=== PATIENT | male | born 1960 | race Caucasian/White ===

== ENCOUNTER 2017-03-23 13:39 | Inpatient (IN) ==
[2017-03-23 14:59] LABS: Basophils % 0.3 %; Eosinophils # 0.2 K/mcL (0.0-0.6); Eosinophils % 1.4 %; Hematocrit 43.4 % (37.5-50.1); Hemoglobin 14.4 g/dL (12.9-16.9); Immature Granulocytes % 0.3 % (0-4); Immature Platelets 5.5 % (1.1-6.1); Lymphocytes # 2.2 K/mcL (0.6-4.6); Lymphocytes % 18.4 %; Mean Corpuscular HGB Conc 33.2 g/dL (31.6-35.5); Mean Corpuscular Hemoglobin 29.4 pg (28.0-33.3); Mean Corpuscular Volume 88.8 fL (83.0-100.0); Mean Platelet Volume 10.3 fL (9.4-12.4); Monocytes # 0.8 K/mcL (0.0-1.3); Neutrophils # 8.7 K/mcL (1.6-8.9); Platelet Count 180 K/mcL (140-400); Red Blood Count 4.89 M/mcL (4.19-5.50); Red Cell Distribution Width 13.4 % (11.5-14.5); Segmented Neutrophils % 72.6 %
[2017-03-23 15:05] LABS: INR 1.2
[2017-03-23] MEDS ORDERED: *HR* HYDROmorphone (PF) 1 MG/ML SYRINGE IVP ONE ×3 (15:06→18:09)
[2017-03-23] MEDS ORDERED: 0.9 % Sodium Chloride 1,000 ML IVC ONE (15:06)
--- NOTE | 2017-03-23 15:11 | Emergency Department Note ---
Disposition Clinical Impression: Edema of right lower extremity Dvt femoral (deep venous thrombosis) Qualifiers: Chronicity: acute Laterality: right Qualified Code(s): I82.411 - Acute embolism and thrombosis of right femoral vein Disposition: Admitted As Inpatient Condition: Good Referrals: NO,PCP [Non-Partnered Physician] - Forms: ED Satisfaction Letter General Adult HPI - General Chief complaint: ED Chest Pain Stated complaint: JL, chest pain Time Seen by Provider: 03/23/17 14:48 Source: patient Limitations: no limitations Nursing Notes Reviewed: Yes Vital Signs Reviewed: Yes - History of Present Illness HPI Narrative: 57-year-old male who reports that 1 month ago he was admitted due to DVT and right lower extremity cellulitis. He has a long history of DVT and PE. His most recent DVT was one month ago on his admission. He has been on numerous anticoagulants including Lovenox, Arixtra, Coumadin, Jeff was and is currently on Pradaxa. He has only been on Pradaxa now for one month. He did previously have an IVC filter that was removed in 2014. He is followed by Dr. Rosa who has diagnosed him as heterozygous factor V Leiden. He admits to progressively worsening right lower extremity edema and pain. In addition he is having dyspnea with exertion and intermittent right-sided chest discomfort. Radiation: non-radiation Pain Severity: severe Pain Scale: 10 Improves with: nothing Worsens with: movement Associated symptoms: Reports: denies other symptoms Treatments Prior to Arrival: none - Related Data Home Medications Medication Instructions Recorded Confirmed Omeprazole [PriLOSEC] 20 mg PO DAILY 04/03/15 03/19/17 Oxycodone HCl/Acetaminophen 1 tab PO Q4-6H PRN 04/03/15 03/19/17 [Percocet 5-325 mg Tablet] Sildenafil Citrate [Viagra] 100 mg PO PRN PRN 04/03/15 03/19/17 BuPROPion SR (12 HR) [Wellbutrin 150 mg PO DAILY 02/23/17 03/19/17 SR] Fluticasone Propionate [Allergy 2 spray NS DAILY 02/23/17 03/19/17 Relief] Gabapentin [Neurontin] 400 mg PO TID 02/23/17 03/19/17 Ibuprofen [Motrin] 800 mg PO DAILY PRN 02/23/17 03/19/17 Lisinopril [Zestril] 5 mg PO DAILY 02/23/17 03/19/17 Multivitamin [Multivitamins] 1 each PO DAILY 02/23/17 03/19/17 Pravastatin Sodium [Pravachol] 40 mg PO DAILY 02/23/17 03/19/17 Terazosin HCl 6 mg PO DAILY 02/23/17 03/19/17 hydroCHLOROthiazide 12.5 mg PO DAILY 02/23/17 03/19/17 [Hydrochlorothiazide] Previous Rx's Medication Instructions Recorded Dabigatran [Pradaxa] 150 mg PO BID #60 capsule 03/01/17 Furosemide [Lasix] 20 mg PO DAILY PRN #7 tablet 03/01/17 HYDROmorphone [Dilaudid] 4 mg PO Q6HR PRN #30 tablet 03/01/17 Sulfamethoxazole/Trimeth DS 1 each PO BID #20 tablet 03/01/17 [Bactrim DS] Allergies Allergy/AdvReac Type Severity Reaction Status Date / Time No Known Allergies Allergy Verified 04/04/15 10:40 All systems ED: reviewed and negative except as stated. Constitutional: Denies: fever Eyes: Denies: vision change ENT ED: Denies: throat pain Cardiovascular: Reports: chest pain Respiratory: Reports: dyspnea. Denies: cough Gastrointestinal: Denies: abdominal pain, nausea, vomiting Musculoskeletal: Denies: back pain Integumentary: Reports: rash (Right lower extremity edema and mild erythema) Neurological: Denies: headache Past Medical History - Past Medical History Medical history: Reports: DVT, GERD, hypertension, pulmonary embolus Surgical history: Reports: herniorrhaphy, LE vascular intervention, orthopedic, other Psychiatric history: Reports: depression - Social History Smoking Status: Former smoker Smokeless Tobacco Status: No Alcohol use: Reports: occasionally Drug use: Reports: none Physical Exam - General Limitations: no limitations General appearance: alert, anxious - Head Head exam: atraumatic - Eye Eye exam: Present: normal appearance, PERRL - ENT ENT exam: normal exam, normal oropharynx - Neck Neck exam: Present: normal inspection - Chest Chest inspection: Present: normal inspection - Respiratory Respiratory exam: Present: normal lung sounds bilaterally. Absent: respiratory distress - Cardiovascular Cardiovascular exam: Present: normal rhythm, tachycardia - Abdominal Exam Abdominal exam: Present: soft, Non-Tender - Extremities Exam Extremities exam: Present: other (Right lower extremity edema along with erythema to the level of the knee. It is not markedly warm to the touch with no streaks of erythema. It appears to be venous stasis as opposed to cellulitis.) - Neurological Exam Neurological exam: Present: alert, oriented X3 - Psychiatric Psychiatric exam: Present: normal affect, normal mood - Skin Skin exam: Present: warm, dry Course Course Narrative: I had concern for venous stasis of the right lower extremity as opposed to cellulitis. The presumed diagnosis of cellulitis on his last admission was unresponsive to vancomycin and Zosyn. He also did not have a fever and has not had one today or since he has been discharged from the hospital. There is also no streaks of erythema. It is also tense with a new DVT that was noted one month ago when the symptoms first started. Obviously of concern for pulmonary embolism with his tachycardia and mild hypoxia and dyspnea. We will do a CTA of the chest. Called by U/S due to + DVT in superficial femoral. Negative CTA of the chest for PE. I called and spoke with Dr. Garcia who recommended admission and on a heparin drip. He agreed to be a job service consultant. Will admit to hospitalist. Vital Signs Temperature 98.2 F 03/23/17 13:46 Pulse Rate 118 03/23/17 13:46 Respiratory Rate 16 03/23/17 13:46 Blood Pressure 124/74 03/23/17 13:46 O2 Sat by Pulse Oximetry 95 03/23/17 13:46 Temperature 98.2 F 03/23/17 13:46 Pulse Rate 88 03/23/17 17:11 Respiratory Rate 16 03/23/17 17:11 Blood Pressure 128/75 03/23/17 17:11 O2 Sat by Pulse Oximetry 93 03/23/17 17:11 Oxygen Delivery Oxygen Delivery Room Air Medical Decision Making - Medical Records Medical records reviewed: Yes I reviewed the patient's medical records. - Lab Data Lab results reviewed: Yes I reviewed the patient's lab results. Result diagrams: 03/23/17 14:52 03/23/17 14:52 Lab Results 03/23/17 03/23/17 03/23/17 Range/Units 14:52 14:52 14:52 WBC 12.0 H (4.3-11.1) K/mcL RBC 4.89 (4.19-5.50) M/mcL Hgb 14.4 (12.9-16.9) g/dL Hct 43.4 (37.5-50.1) % MCV 88.8 (83.0-100.0) fL MCH 29.4 (28.0-33.3) pg MCHC 33.2 (31.6-35.5) g/dL RDW 13.4 (11.5-14.5) % Plt Count 180 (140-400) K/mcL MPV 10.3 (9.4-12.4) fL Immature Gran % 0.3 (0-4) % Seg Neutrophils % 72.6 % Lymphocytes % 18.4 % Monocytes % 7.0 % Eosinophils % 1.4 % Basophils % 0.3 % Neutrophils # 8.7 (1.6-8.9) K/mcL Lymphocytes # 2.2 (0.6-4.6) K/mcL Monocytes # 0.8 (0.0-1.3) K/mcL Eosinophils # 0.2 (0.0-0.6) K/mcL Basophils # 0.0 (0.0-0.2) K/mcL Immature Plt Fraction 5.5 (1.1-6.1) % PT 13.0 H (9.4-12.1) Seconds INR 1.2 APTT 41.0 H (26.0-36.0) Seconds D-Dimer 1206 H (0-500) ng/mLFEU Sodium 137 (136-145) mEq/L Potassium 4.2 (3.5-4.5) mEq/L Chloride 103 (98-109) mEq/L Carbon Dioxide 27 (19-29) mEq/L BUN 15 (8-26) mg/dL Creatinine 1.21 (0.72-1.25) mg/dL Est GFR ( Amer) > 60 (> 60) Est GFR (Non-Af Amer) > 60 (> 60) BUN/Creatinine Ratio 12 (6-26) Glucose 109 H (70-99) mg/dL Calculated Osmolality 285 (280-300) Calcium 9.1 (8.6-10.8) mg/dL Troponin I (0-0.03) ng/mL 03/23/17 Range/Units 14:52 WBC (4.3-11.1) K/mcL RBC (4.19-5.50) M/mcL Hgb (12.9-16.9) g/dL Hct (37.5-50.1) % MCV (83.0-100.0) fL MCH (28.0-33.3) pg MCHC (31.6-35.5) g/dL RDW (11.5-14.5) % Plt Count (140-400) K/mcL MPV (9.4-12.4) fL Immature Gran % (0-4) % Seg Neutrophils % % Lymphocytes % % Monocytes % % Eosinophils % % Basophils % % Neutrophils # (1.6-8.9) K/mcL Lymphocytes # (0.6-4.6) K/mcL Monocytes # (0.0-1.3) K/mcL Eosinophils # (0.0-0.6) K/mcL Basophils # (0.0-0.2) K/mcL Immature Plt Fraction (1.1-6.1) % PT (9.4-12.1) Seconds INR APTT (26.0-36.0) Seconds D-Dimer (0-500) ng/mLFEU Sodium (136-145) mEq/L Potassium (3.5-4.5) mEq/L Chloride (98-109) mEq/L Carbon Dioxide (19-29) mEq/L BUN (8-26) mg/dL Creatinine (0.72-1.25) mg/dL Est GFR ( Amer) (> 60) Est GFR (Non-Af Amer) (> 60) BUN/Creatinine Ratio (6-26) Glucose (70-99) mg/dL Calculated Osmolality (280-300) Calcium (8.6-10.8) mg/dL Troponin I 0.00 (0-0.03) ng/mL - Radiology Data Radiology results reviewed: Yes I reviewed the patient's radiology results.
[2017-03-23 15:12] LABS: BUN/Creatinine Ratio 12 (6-26); Blood Urea Nitrogen 15 mg/dL (8-26); Calcium 9.1 mg/dL (8.6-10.8); Carbon Dioxide 27 mEq/L (19-29); Chloride 103 mEq/L (98-109); Glucose 109 mg/dL (70-99); Osmolality,Calculated 285 (280-300); Potassium 4.2 mEq/L (3.5-4.5); Sodium 137 mEq/L (136-145); eGFR For African Americans > 60 (> 60); eGFR For Non-African Americans > 60 (> 60)
--- NOTE | 2017-03-23 15:37 | Emergency Department Note ---
START Narrative - START START: I examined this patient and my medical decision-making was reviewed with the BARIATRIC COORDINATOR/PA/Advanced Practice Nurse/Resident Physician. I agree with the documented findings, disposition and treatment plan as described except to the extent set forth below. ED attending note: Patient seen with emergency medicine resident Dr Varma. We independently evaluated the patient. We independently had [id number] contact with the patient. Please see a copy of his note for details of the history and physical, evaluation, management and disposition of this emergency Department patient. Briefly: 57-year-old male presents with shortness of breath or chest discomfort. Multiple prior DVTs and PEs. Has been tried and failed on many different types of oral anticoagulants. Is currently on Primaxin. This was started a few months ago. Patient is a high risk for PE and DVT would be getting a CTA and Doppler study. Disposition pending. Provided in 35 minutes of critical care services for this patient.
[2017-03-23] MEDS ORDERED: *HR* Heparin 5,000 UNIT/ML VIAL IVP PRN ×2 (18:08)
[2017-03-23] MEDS ORDERED: *HR* Heparin 5,000 UNIT/ML VIAL IVP ONE (18:08)
[2017-03-23] MEDS: Heparin 25,000 UNIT/500 ML D5W 25,000 UNIT/500 ML MLS IVC SCH (18:16)
[2017-03-23] MEDS ORDERED: Acetaminophen 325 MG TABLET PO PRN (19:22)
[2017-03-23] MEDS ORDERED: Naloxone 0.4 MG/ML INJ IVP PRN (19:22)
[2017-03-23] MEDS ORDERED: *HR* Morphine 2 MG/ML SYRINGE IVP PRN (19:22)
[2017-03-23] MEDS ORDERED: Furosemide 20 MG TABLET PO PRN (19:23)
--- NOTE | 2017-03-23 20:15 | Internal Med History&Physical ---
Date of Encounter: 03/23/17 Time of Encounter: 19:45 Assessment and Plan (1) Deep vein thrombosis (DVT) of right lower extremity Current visit: Yes Status: Acute Patient with recurrent deep vein thrombosis while on anticoagulation with Pradaxa involving the right lower extremity with significant pain and swelling. Hematology has been consulted and they have recommended starting the patient on IV heparin. Will treat symptoms with intravenous narcotic pain medications. Although the patient has some erythema associated with the swelling most likely it is stasis related dermatitis rather than acute cellulitis. Patient had been treated for cellulitis recently and completed treatment with Bactrim. At this time do not believe further antibiotic therapy is warranted. However if patient develops fever chills or any other signs of acute infection, we can start treating him with intravenous antibiotics. High risk for complications due to use of intravenous narcotic medications and IV heparin. Qualifiers: Affected thrombotic vein of extremity: unspecified lower extremity proximal vein Chronicity: acute Qualified Code(s): I82.4Y1 - Acute embolism and thrombosis of unspecified deep veins of right proximal lower extremity (2) Factor 5 Leiden mutation, heterozygous Current visit: Yes Status: Chronic Patient with chronic thrombophilia and failed medical management as outpatient. Consult hematology for further recommendations. (3) Thrombophilia Current visit: Yes Status: Chronic (4) Venous ulcer of left leg Current visit: Yes Status: Chronic Continue local wound care Internal Medicine - H&P: HPI Chief complaint: Right leg pain and swelling Admitted From: Emergency Dept Plans for Post Hospital Care: Home History of present illness: Mr. Jj is a 57 year old male patient with a history of factor V deficiency , protein C deficiency with recurrent deep vein thrombosis, pulmonary embolism presented to the ER with complaints of pain and swelling involving his right lower extremity that began 3 days back. Patient had been admitted here one month back when he was diagnosed with acute DVT in the right sided popliteal vein. At that time he was discharged on Pradaxa 150 mg twice daily. Patient has been on multiple different anticoagulation regimens but has failed through most of them. Presently he reports 10 out of 10 pain along with erythema in his right lower extremity. No shortness of breath or chest pain. Reviewing the medical records, the patient had been on Xarelto, Arixtra, Eliquis and had acute deep vein thrombosis while he was taking these medications. Patient also had an episode of right-sided psoas hematoma while he was on Arixtra. Past Med Surg Social Fam HX - Past Medical History Attestation: Yes The following information was validated with the patient. Source: patient Medical history: DVT, GERD, hypertension, pulmonary embolus Psychiatric history: depression - Past Surgical History Surgical History: herniorrhaphy, LE vascular intervention, orthopedic, other - Social History Smoking Status: Former smoker Smokeless Tobacco Status: No Alcohol use: occasionally Drug use: none - Family History Mother Adopted: No Family Member Ethnicity: Non- Living Status: Hx Family Cardiac Disorders: Yes Hx Family Respiratory Disorders: No Hx Family Cancer: Yes Hx Family GI Disorders: No Hx Family Endocrine Disorder: Yes Hx Family Neuromuscular Disorders: No Hx Family Neurologic Disorders: No Hx Family HEENT Disorders: No Hx Family Autoimmune Disorders: No Internal Medicine - H&P: Meds Omeprazole [PriLOSEC] 20 mg PO DAILY 04/03/15 [History] Oxycodone HCl/Acetaminophen [Percocet 5-325 mg Tablet] 1 tab PO Q4-6H PRN [History] Sildenafil Citrate [Viagra] 100 mg PO PRN PRN 04/03/15 [History] BuPROPion SR (12 HR) [Wellbutrin SR] 150 mg PO DAILY 02/23/17 [History] Fluticasone Propionate [Allergy Relief] 2 spray NS DAILY 02/23/17 [History] Gabapentin [Neurontin] 400 mg PO TID 02/23/17 [History] Ibuprofen [Motrin] 800 mg PO DAILY PRN 02/23/17 [History] Lisinopril [Zestril] 5 mg PO DAILY 02/23/17 [History] Multivitamin [Multivitamins] 1 each PO DAILY 02/23/17 [History] Pravastatin Sodium [Pravachol] 40 mg PO DAILY 02/23/17 [History] Terazosin HCl 6 mg PO DAILY 02/23/17 [History] hydroCHLOROthiazide [Hydrochlorothiazide] 12.5 mg PO DAILY 02/23/17 [History] Dabigatran [Pradaxa] 150 mg PO BID #60 capsule 03/01/17 [Rx] Furosemide [Lasix] 20 mg PO DAILY PRN #7 tablet 03/01/17 [Rx] Allergies No Known Allergies Allergy (Verified 03/23/17 18:30) All Systems PM: A 10-system review of systems was performed and is negative for pertinent findings except as documented above in the HPI. - Constitutional Constitutional: no chills, no fever(s), no night sweats - EENT Eyes: no change in vision, no discharge, no pain, no photophobia Ears: no ear discharge, no ear pain, no tinnitus Nose, mouth and throat: no dysphagia, no nasal discharge, no neck pain, no sore throat - Cardiovascular Cardiovascular ROS IM: no chest pain, no diaphoresis, no dyspnea, no lightheadedness, no palpitations, no syncope - Respiratory Respiratory: no cough, no dyspnea, no wheezing, no excessive phlegm production - Gastrointestinal Gastrointestinal: no abdominal pain, no diarrhea, no hematemesis, no hematochezia, no melena, no nausea, no vomiting - Musculoskeletal Musculoskeletal ROS IM: no numbness, no tingling Additional comments: Right leg pain - Integumentary Integumentary IM: erythema, no rash, no unusual bruising - Neurological Neurological ROS: no confusion, no convulsions, no focal weakness, no numbness, no tingling, no tremor(s) - Hematologic/Lymphatic Hematologic/Lymphatic: no easy bruising - Constitutional Vitals: Temp Pulse Resp BP Pulse Ox 98.8 F 78 17 117/78 96 03/23/17 20:07 03/23/17 20:07 03/23/17 20:07 03/23/17 20:07 03/23/17 20:07 General appearance: Present: cooperative, A&O X 3, obese, severe distress, answers questions appropriately - Eye Eye exam: Present: EOMI, PERRL, conjuntiva pink, sclera anicteric - Neck Neck exam general surgery: Present: supple, trachea midline. Absent: lymphadenopathy - Respiratory Respiratory exam: Present: CTAB. Absent: accessory muscle use, rales, rhonchi, wheezes - Cardiovascular Cardiovascular exam: Present: RRR, +S1, +S2. Absent: diastolic murmur, gallop, rubs, systolic murmur - GI/Abdominal GI/Abdominal exam: Present: normal bowel sounds, soft, no peritoneal signs. Absent: distended, tenderness - Extremities Exam Extremities exam: Present: pedal edema (Right-sided), tenderness, radial pulses palpable and symetrical. Absent: calf tenderness, cyanotic Additional comments: Exquisite tenderness involving the right lower extremity from just below the knee joint to the ankle with erythema and swelling. Warm to touch. Venous stasis ulcer in the left lower extremity. - Neurological Exam Neurological exam: Present: alert, CN II-XII intact, oriented X3, no focal deficits, strengths equal and symetr throughout. Absent: facial droop, speech deficit - Skin Skin exam: Present: dry, erythema, intact Internal Med - H&P Results - Labs CBC & Chem 7: 03/23/17 14:52 03/23/17 14:52 - Impressions Impressions Chest X-Ray 03/23/17 13:53 IMPRESSION: Findings suggest congestive heart failure D/ / Cesar Patino MD / Cesar Patino MD Interpreting Provider: Cesar Patino MD Chest CTA 03/23/17 15:05 IMPRESSION: 1. No evidence of pulmonary embolism or aortic dissection. 2. Centrilobular punctate nodular ground-glass opacity within the posterior aspect of the lingula, new when compared to the previous exam, suggesting bronchiolitis. 3. Minimal patchy bilateral lower lung airspace opacity, likely atelectasis, unchanged. D/ / Martin Fowler MD / Martin Fowler MD Interpreting Provider: Martin Fowler MD Right lower extremity venous Doppler shows acute DVT according to the preliminary report
[2017-03-23] MEDS: *HR* HYDROmorphone 2 MG/ML SYRINGE IVP PRN (21:39)
[2017-03-23] MEDS: Gabapentin 400 MG CAPSULE PO SCH (21:45)
[2017-03-24] MEDS: Ondansetron 4 MG/2 ML VIAL IVP PRN ×2 (01:37→09:32)
[2017-03-24] MEDS: *HR* HYDROmorphone 2 MG/ML SYRINGE IVP PRN ×4 (01:38→20:47)
[2017-03-24 02:23] LABS: Basophils % 0.4 %; Eosinophils # 0.2 K/mcL (0.0-0.6); Eosinophils % 2.2 %; Hematocrit 42.1 % (37.5-50.1); Hemoglobin 13.8 g/dL (12.9-16.9); Immature Granulocytes % 0.5 % (0-4); Lymphocytes # 3.4 K/mcL (0.6-4.6); Mean Corpuscular HGB Conc 32.8 g/dL (31.6-35.5); Mean Corpuscular Hemoglobin 29.6 pg (28.0-33.3); Mean Corpuscular Volume 90.3 fL (83.0-100.0); Mean Platelet Volume 11.3 fL (9.4-12.4); Monocytes # 0.7 K/mcL (0.0-1.3); Monocytes % 6.4 %; Neutrophils # 6.4 K/mcL (1.6-8.9); Platelet Count 172 K/mcL (140-400); Red Blood Count 4.66 M/mcL (4.19-5.50); Red Cell Distribution Width 13.8 % (11.5-14.5); Segmented Neutrophils % 59.5 %
[2017-03-24 02:36] LABS: BUN/Creatinine Ratio 13 (6-26); Blood Urea Nitrogen 15 mg/dL (8-26); Calcium 8.6 mg/dL (8.6-10.8); Carbon Dioxide 29 mEq/L (19-29); Chloride 101 mEq/L (98-109); Glucose 116 mg/dL (70-99); Osmolality,Calculated 286 (280-300); Sodium 137 mEq/L (136-145); eGFR For African Americans > 60 (> 60); eGFR For Non-African Americans > 60 (> 60)
--- NOTE | 2017-03-24 06:35 | Electrocardiograph Report ---
[facility] Test Date: 2017-03-23 Pat Name: Donald Jj Department: 102 Room: 3B14 Gender: M Category Development Analyst: : 1960 Requested By: Kenyn Vinson Order Number: [id number] Reading MD: Clyde Dias DO Measurements Intervals [place] Rate: 115 P: 25 WA: 162 QRS: 33 QRSD: 77 T: 22 QT: 299 QTc: 367 Interpretive Statements SINUS TACHYCARDIA NONSPECIFIC T-WAVE ABNORMALITY ABNORMAL RHYTHM ECG Electronically Signed On 03-24-2017 6:34:10 EDT by Clyde Dias DO
--- NOTE | 2017-03-24 08:42 | Oncology Inp Consult Note ---
Date of Encounter: 03/24/17 Time of Encounter: 08:33 - Data of Consult Patient: known to practice within the last 3 years Consult date: 03/24/17 Requesting Physician: Hellen Cox Primary Care Provider: Faye Gamboa - Consult Narrative Reason for consult: Recurrent DVT. Failure of multiple anticoagulants. History of present illness: Mr. Jj is a 57 year old gentleman who was established with hematology for ongoing management of his hypercoagulable state. I have summarized patient's heme/onc background below based on my most recent office report from 03/19/17: He has had multiple episodes of recurrent venous thromboembolism including a spate of VTEs since January 2014 when he presented with right lower extremity DVT while on Arixtra indicating anticoagulation failure. He did admit some compliance problems while on Arixtra due to injection site pain. As a result, he was switched to Xarelto. He was readmitted end of January 2014 with new pulmonary embolism while on Xarelto with a new clot. We decided to rechallenge him with Arixtra in view of his admitted poor compliance with treatment previously. We have consistently documented adequate factor Xa inhibition. In May 2014, he had new DVT in the left upper extremity(basilic,brachial and cephalic vns) 3 weeks post post op (arthroscopic left rotator cuff repair) while on Arixtra compatible with Arixtra failure. Started on Pradaxa 150 mg p.o. twice daily on 05/30/14. He was hospitalized February 2015 with right psoas hematoma and new bilateral lower extremity DVT with involvement of bilateral common femoral veins confirmed in bilateral lower extremity Doppler 03/19/15. At the time, he had been taking Arixtra injections in addition to his established regimen of Pradaxa twice daily. After extensive discussion regarding the risk of clot extension versus worsening of his retroperitoneal hematoma, we made a conscious decision to continue Pradaxa 75 mg twice daily dosing but he decided to take 150 mg daily instead. [facility] with [facility] and continued 5 mg by mouth twice a day. Most recently, he presented 02/23/17 with acute DVT right superficial femoral and popliteal veins while on Eliquis and despite compliance. He has since been on Pradaxa. He has confirmed heterozygous for Factor V Leiden mutation and was previously followed at hematology at [facility]. Prothrombin gene mutation and lupus anticoagulant were negative. Rest of thrombophilia workup was negative. He was following with us locally for management of his thrombophilia but was lost to follow-up with us after we saw him on 04/03/15. He [place]C [place] [address] Quintana. He also has peripheral vascular disease and left chronic leg ulcer that is managed by podiatry and wound clinic. I suspect that there may be some contribution from post thrombotic syndrome with venous insufficiency. He had his IVC filter retrieved 08/07/15 at [facility] and continues to follow with vascular surgery at [facility]. He was given a trial of Trental and Vasculera per [facility] but stopped due to perceived lack of benefit. He has also previously seen hematology at [facility] for ongoing management of his hypercoagulable state. I reviewed the most recent office report available to us from 12/09/16 for details. Patient is currently hospitalized for reported new, acute DVT in his right lower extremity after presenting with worsening pain. At his last office visit with me, I recommended to repeat a lower extremity Doppler to evaluate his residual clot burden due to worsening painful swelling in the right lower extremity. He presented to the emergency room due to worsening symptoms and had a lower extremity Doppler which reported a new DVT. Unfortunately, I do not have the official report at time of patient's evaluation and I'm unable to tell if distribution of clot is same as that from previous Doppler of 02/24/17. Nevertheless, patient reports complete compliance with Pradaxa. As it is, he is essentially failed multiple lines of anticoagulation. He is currently being managed with heparin infusion appropriately and reports some improvement in his symptoms since hospitalized. No other new physical complaints. Oncology is consulted re: new right lower extremity DVT in the setting of anticoagulation failure for patient with establish hypercoagulable state. Patient seen and examined at bedside. Chart reviewed for details of ongoing care by hospital team which is much appreciated. He is not having any new physical complaints at time of evaluation. Rest of past medical, surgical, family, social history detailed below and verified with patient today. Review of systems: 12 point review of systems performed with patient and positive findings noted in history of present illness. All other systems are negative: Physical exam: Vital Signs Temp 98.1 F 03/24/17 06:49 Pulse 81 03/24/17 06:49 Resp 16 03/24/17 06:49 BP 147/90 03/24/17 06:49 Pulse Ox 98 03/24/17 06:49 GENERAL: Alert and oriented, comfortable appearing. Mental Status: Affect appropriate for circumstances HEENT: Sclerae anicteric. No mucositis or thrush. No other oral or pharyngeal lesions or erythema. Skin: No rashes or petechiae. No evidence of skin malignancy Lymph nodes: No cervical, supraclavicular, axillary, or inguinal adenopathy. Lungs: Clear to auscultation bilaterally. Clear to percussion bilaterally. Cardiovascular: Regular rate and rhythm. No gallops, murmurs, or rubs. Abdomen: Soft, nontender; No organomegaly or masses palpable. Extremities: Swollen, erythematous right leg was swollen. Tender to the touch. , Dry dressing applied to the left lower extremity. No joint deformity. Neurologic: Alert, normal gait; no focal weakness or sensory abnormalities. Results: Laboratory Last Values WBC 10.8 K/mcL (4.3-11.1) 03/24/17 01:14 RBC 4.66 M/mcL (4.19-5.50) 03/24/17 01:14 Hgb 13.8 g/dL (12.9-16.9) 03/24/17 01:14 Hct 42.1 % (37.5-50.1) 03/24/17 01:14 MCV 90.3 fL (83.0-100.0) 03/24/17 01:14 MCH 29.6 pg (28.0-33.3) 03/24/17 01:14 MCHC 32.8 g/dL (31.6-35.5) 03/24/17 01:14 RDW 13.8 % (11.5-14.5) 03/24/17 01:14 Plt Count 172 K/mcL (140-400) 03/24/17 01:14 MPV 11.3 fL (9.4-12.4) 03/24/17 01:14 Immature Gran % 0.5 % (0-4) 03/24/17 01:14 Seg Neutrophils % 59.5 % 03/24/17 01:14 Lymphocytes % 31.0 % 03/24/17 01:14 Monocytes % 6.4 % 03/24/17 01:14 Eosinophils % 2.2 % 03/24/17 01:14 Basophils % 0.4 % 03/24/17 01:14 Neutrophils # 6.4 K/mcL (1.6-8.9) 03/24/17 01:14 Lymphocytes # 3.4 K/mcL (0.6-4.6) 03/24/17 01:14 Monocytes # 0.7 K/mcL (0.0-1.3) 03/24/17 01:14 Eosinophils # 0.2 K/mcL (0.0-0.6) 03/24/17 01:14 Basophils # 0.0 K/mcL (0.0-0.2) 03/24/17 01:14 Immature Plt Fraction 5.5 % (1.1-6.1) 03/23/17 14:52 PT 13.0 Seconds (9.4-12.1) H 03/23/17 14:52 INR 1.2 03/23/17 14:52 APTT 97.2 Seconds (26.0-36.0) H D 03/24/17 01:14 D-Dimer 1206 ng/mLFEU (0-500) H 03/23/17 14:52 Sodium 137 mEq/L (136-145) 03/24/17 01:14 Potassium 4.0 mEq/L (3.5-4.5) 03/24/17 01:14 Chloride 101 mEq/L (98-109) 03/24/17 01:14 Carbon Dioxide 29 mEq/L (19-29) 03/24/17 01:14 BUN 15 mg/dL (8-26) 03/24/17 01:14 Creatinine 1.17 mg/dL (0.72-1.25) 03/24/17 01:14 Est GFR ( Amer) > 60 (> 60) 03/24/17 01:14 Est GFR (Non-Af Amer) > 60 (> 60) 03/24/17 01:14 BUN/Creatinine Ratio 13 (6-26) 03/24/17 01:14 Glucose 116 mg/dL (70-99) H 03/24/17 01:14 Calculated Osmolality 286 (280-300) 03/24/17 01:14 Calcium 8.6 mg/dL (8.6-10.8) 03/24/17 01:14 Troponin I 0.00 ng/mL (0-0.03) 03/23/17 14:52 Radiographic studies: I personally reviewed and interpreted patient's most recent imaging studies dated 03/23/17. I discussed the findings with the patient today. Chest CT negative for pulmonary embolism. Impression/recommendations: Recurrent DVT/hypercoagulable state: He is heterozygous for factor V Leiden mutation. Nevertheless, he's had multiple recurrent DVTs confirming a hypercoagulable state. Has failed multiple anticoagulants. Previously did not tolerate Lovenox. He now has a new clot despite being on. He recently failed Eliquis. Unfortunately, I do not have the formal report of his most recent Doppler but based an increase in symptoms of right lower extremity painful swelling, diagnoses of new clot/clot propagation on current anticoagulant is possible. He appears to be favoring okay on heparin infusion. Will continue as you're doing. Failure multiple anticoagulants: Patient has essentially failed all and all available anticoagulants at this point. He is established Dr. Demetrius Saunders at [facility] for same problem and distant failure multiple anticoagulants, I think we need to get an expert opinion from Dr. Saunders regarding appropriate management at this point. Realistically, I cannot think of any effective anticoagulant options in interim basis and I would recommend that he be transferred as an inpatient for urgent management. I discussed my impression/recommendation with the hospitalist team. We'll follow the patient peripherally with you during this hospitalization. Please call with interval questions. Thank you for your excellent ongoing care for allowing us to see him while in- house. Past Med Surg Social Fam HX - Past Medical History Medical history: DVT, GERD, hypertension, pulmonary embolus Psychiatric history: depression - Past Surgical History Surgical History: herniorrhaphy, LE vascular intervention, orthopedic, other - Social History Smoking Status: Former smoker Smokeless Tobacco Status: No Alcohol use: occasionally Drug use: none - Family History Mother Adopted: No Family Member Ethnicity: Non- Living Status: Hx Family Cardiac Disorders: Yes Hx Family Respiratory Disorders: No Hx Family Cancer: Yes Hx Family GI Disorders: No Hx Family Endocrine Disorder: Yes Hx Family Neuromuscular Disorders: No Hx Family Neurologic Disorders: No Hx Family HEENT Disorders: No Hx Family Autoimmune Disorders: No Medications and Allergies Omeprazole [PriLOSEC] 20 mg PO DAILY 04/03/15 [History] Oxycodone HCl/Acetaminophen [Percocet 5-325 mg Tablet] 1 tab PO Q4-6H PRN [History] Sildenafil Citrate [Viagra] 100 mg PO PRN PRN 04/03/15 [History] BuPROPion SR (12 HR) [Wellbutrin SR] 150 mg PO DAILY 02/23/17 [History] Fluticasone Propionate [Allergy Relief] 2 spray NS DAILY 02/23/17 [History] Gabapentin [Neurontin] 400 mg PO TID 02/23/17 [History] Ibuprofen [Motrin] 800 mg PO DAILY PRN 02/23/17 [History] Lisinopril [Zestril] 5 mg PO DAILY 02/23/17 [History] Multivitamin [Multivitamins] 1 each PO DAILY 02/23/17 [History] Pravastatin Sodium [Pravachol] 40 mg PO DAILY 02/23/17 [History] Terazosin HCl 6 mg PO DAILY 02/23/17 [History] hydroCHLOROthiazide [Hydrochlorothiazide] 12.5 mg PO DAILY 02/23/17 [History] Dabigatran [Pradaxa] 150 mg PO BID #60 capsule 03/01/17 [Rx] Furosemide [Lasix] 20 mg PO DAILY PRN #7 tablet 03/01/17 [Rx] Allergies No Known Allergies Allergy (Verified 03/23/17 18:30) Oncology - Exam - Constitutional Vitals: Temp Pulse Resp BP Pulse Ox 98.1 F 81 16 147/90 98 03/24/17 06:49 03/24/17 06:49 03/24/17 06:49 03/24/17 06:49 03/24/17 06:49 Oncology - Results - Labs Labs: Short CBC 03/24/17 Range/Units 01:14 WBC 10.8 (4.3-11.1) K/mcL Hgb 13.8 (12.9-16.9) g/dL Hct 42.1 (37.5-50.1) % Plt Count 172 (140-400) K/mcL Neutrophils # 6.4 (1.6-8.9) K/mcL BMP 03/24/17 01:14 Sodium 137 Potassium 4.0 Chloride 101 Carbon Dioxide 29 BUN 15 Creatinine 1.17 Glucose 116 H Calcium 8.6 Consult Discharge Plan - Plan Referrals: Clyde Dias DO [Primary Care Provider] -
[2017-03-24] MEDS: Gabapentin 400 MG CAPSULE PO SCH ×3 (09:15→20:45)
[2017-03-24] MEDS: Multivit/Ca/Min/Fe/FA 1 TAB TABLET PO SCH (09:17)
[2017-03-24] MEDS: BuPROPion SR (12 HR) 150 MG TABLET PO SCH (09:17)
[2017-03-24] MEDS: Fluticasone Propionate Nasal 50 MCG/SPRAY BOTTLE NS SCH (09:18)
[2017-03-24] MEDS: hydroCHLOROthiazide 25 MG TABLET PO SCH (09:24)
[2017-03-24] MEDS: *HR* OxyCODONE/APAP 5/325 TABLET PO PRN ×3 (09:31→21:53)
[2017-03-24] MEDS: Heparin 25,000 UNIT/500 ML D5W 25,000 UNIT/500 ML MLS IVC SCH (10:51)
--- NOTE | 2017-03-24 12:16 | Venous Imaging Report ---
LE Venous Duplex Patient Name:Donald Jj Order Number:[id number] Procedure Date:03/23/2017 Date:1960ge:57 yrs Gender:Male Location:[facility] ED Room #: ER16 Branch Lead:Odilia Sheth Referring MD:William Varma DO caterpillar operator:Clyde Dias DO Reading MD:Mata Ramirez MD , FACS Primary Indications:RLE edema Secondary Indications: Risk Factors Yes/No Hx of DVT Yes Anticoagulants Yes Impressions: Lower extremity abnormal deep exam: right superficial femoral vein and peroneal vein demonstrates acute thrombosis. Left lower extremity: normal contralateral exam. Right lower extremity: normal superficial exam. Recommendations: After imaging the patient returned to their room. Gave vascular preliminary results to William Varma in emergency department on 03/23/2017 at 16:50. Test completed on 03/23/2017 at 4:17:00 pm. Critical findings reported to William Varma by phone at 4:50:00 pm on 03/23/2017 by Odilia Sheth. Findings Venous Duplex Results: Right: Venous imaging of the lower extremity reveals full patency and normal vessel compressibility of the right distal iliac, right common femoral, right popliteal, right posterior tibial, right great saphenous and right lesser saphenous. Doppler signals in the evaluated veins were normal. The right distal superficial femoral demonstrates an incompressible vein. Flow was absent and it did not augment. The right peroneal demonstrates an incompressible vein. Flow was absent and it did not augment. Left: Venous imaging of the lower extremity reveals full patency and normal vessel compressibility of the left common femoral. Doppler signals in the evaluated veins were normal. Lower Extremity Venous Duplex Side Vein Compress Spontaneous Flow Augment Diameter (cm) Depth (cm) Right Distal Iliac Normal yes Phasic yes Right Common Femoral Normal yes Phasic yes Right Superficial Femoral None no Absent no Right Popliteal Normal yes Phasic yes Right Posterior Tibial Normal yes Phasic yes Right Peroneal None no Absent no Right Great Saphenous Normal yes Phasic yes Right Lesser Saphenous Normal yes Phasic yes Left Common Femoral Normal yes Phasic yes Updated by Mata Ramirez MD, FACS on 03/24/2017 12:10:15 PM Mata Ramirez MD electronically signed on 03/24/2017 12:10:41 PM with status of Final
--- NOTE | 2017-03-24 13:33 | Discharge Summary ---
Date of Encounter: 03/24/17 Time of Encounter: 09:30 - Discharge Diagnosis (1) Dvt femoral (deep venous thrombosis) Priority: Primary Status: Acute Comments: Doppler imaging consistent with 2 new DVTs to right lower extremity, one to superficial femoral vein, second one to peroneal vein. Patient with increased edema and pain to his right lower extremity. Capillary refill brisk to toes, pulses are strong. Foot is neurovascularly intact. Patient has failed anticoagulation therapy to this point, oncology has recommended transfer inpatient to [facility]. Continue heparin drip (2) Deep vein thrombosis (DVT) of popliteal vein of right lower extremity Priority: Primary Status: Acute (3) DVT (deep venous thrombosis) Priority: Secondary Status: Chronic (4) Bronchiolitis Priority: Primary Status: Acute Comments: Patient denies shortness of breath above his norm. (5) Venous ulcer of lower leg without varicose veins Priority: Secondary Status: Chronic (6) Stasis dermatitis of both legs Priority: Secondary Status: Chronic (7) Factor 5 Leiden mutation, heterozygous Priority: Secondary Status: Chronic (8) Cellulitis of right leg Priority: Primary Status: Ruled-out Comments: Clinical picture more consistent with post thrombotic syndrome with venous insufficiency. Low suspicion for acute infection. (9) MICHAEL (obstructive sleep apnea) Priority: Secondary Status: Chronic Comments: Endorses compliance with CPAP, continued upon discharge (10) Obesity (BMI 30-39.9) Priority: Secondary Status: Chronic - Discharge Medications Home Medications: Omeprazole [PriLOSEC] 20 mg PO DAILY 04/03/15 [History] Oxycodone HCl/Acetaminophen [Percocet 5-325 mg Tablet] 1 tab PO Q4-6H PRN [History] Sildenafil Citrate [Viagra] 100 mg PO PRN PRN 04/03/15 [History] BuPROPion SR (12 HR) [Wellbutrin SR] 150 mg PO DAILY 02/23/17 [History] Fluticasone Propionate [Allergy Relief] 2 spray NS DAILY 02/23/17 [History] Gabapentin [Neurontin] 400 mg PO TID 02/23/17 [History] Ibuprofen [Motrin] 800 mg PO DAILY PRN 02/23/17 [History] Lisinopril [Zestril] 5 mg PO DAILY 02/23/17 [History] Multivitamin [Multivitamins] 1 each PO DAILY 02/23/17 [History] Pravastatin Sodium [Pravachol] 40 mg PO DAILY 02/23/17 [History] Terazosin HCl 6 mg PO DAILY 02/23/17 [History] hydroCHLOROthiazide [Hydrochlorothiazide] 12.5 mg PO DAILY 02/23/17 [History] Dabigatran [Pradaxa] 150 mg PO BID #60 capsule 03/01/17 [Rx] Furosemide [Lasix] 20 mg PO DAILY PRN #7 tablet 03/01/17 [Rx] Allergies/Adverse Reactions: Allergies No Known Allergies Allergy (Verified 03/23/17 18:30) Date of admission: 03/24/17 09:19 Primary care physician: Faye Gamboa Consults: 03/23/17 18:10 Consult to Oncology Hematology [CONS] Routine Consulting Provider: Joel Garcia Reason for Consult: DVT while on anticoagulant Call Completed: Yes Discharging clinician: Hellen Torres Anticipated date of discharge: 03/24/17 (transferring to [facility]) - Patient Status Disposition: Transfer Short-Term Hosp Condition: Good Functional capacity at discharge: independent ambulation Overall status at discharge: patient is progressing back to baseline - Discharge Instructions Follow Up With: Clyde Dias DO [Primary Care Provider] - Additional Instructions: Sending directly to [facility] for further care - Diet and Activity Activity: return to work once cleared by your PCP/specialist Diet: low fat, low cholesterol, low salt diet Hospital course: Mr. Jj is a 57 year old male with past medical history of heterozygous factor V deficiency, protein C deficiency with recurrent DVTs and PE, GERD, hypertension, former tobacco abuse. Patient presented to the emergency department chief complaint of pain and swelling to his right lower extremity 3 days prior to presentation. Of note, patient was admitted last month and diagnosed with an acute DVT at that time. Patient has been on multiple anticoagulation regimens and has failed them consistently. Chest x-ray in the emergency department consistent with CHF. CTA ruled out a PE and was consistent with bronchiolitis. Patient was admitted to the hospitalist service for further evaluation and management. Patient denies shortness of breath above his normal throughout this admission. Echocardiogram was ordered and pending at time of discharge. Patient most recently had an echocardiogram in 2013 that revealed an ejection fraction of 60-65% and was normal. Oncology was brought on board and as the patient has failed numerous outpatient regimens, recommendation was to start the patient on a heparin drip and to transfer the patient to [facility]. Patient has been seen by vascular surgery and hematology at [facility]. According to his chart in [facility], his failed outpatient therapies are as listed below. * 2002- IVC filter placed * January 2014- RLE DVT while on Arixtra. At that time, he did endorse some noncompliance with the injections stating that he had "ran out of sites to inject" in his abdomen. He was then switched to Xarelto. * Later in January of 2014- readmission with a new PE while on Xarelto. He was then restarted on Arixtra and Oncology reported consistent documentation of factor Xa inhibition. * May 2014-new DVT to LUE (basilic, brachial and cephalic veins) 3 weeks post op from arthroscopic left rotator cuff repair while on Arixtra. Started on Pradaxa 150mg po bid on 05/30/14 * February 2015- hospitalized for right psoas hematoma and new bilateral lower extremities DVT with involvement of bilateral common femoral veins. At this time, he was taking Arixtra and Pradaxa 150mgpo BID together. At that time, he also had a retroperitoneal hematoma and risks vs benefits discussion ensued and the patient was recommended to take Pradaxa at 75mg po bid, but the patient chose to take 150mg po bid. [facility]mg po bid. There was reportedly difficultly obtaining coverage for Pradaxa. * 08/07/15- reportedly had IVC filter retrieved per [facility] and followed with [facility] V[facility] Surgery. Was given a trial of Trental and Vasculera but stopped 2/ 2 lack of perceived benefit. * Per [facility] Oncology, he was lost to followup at [facility] from 04/03/15 until recently * 02/23/17- patient presented with acute DVT to the right superficial femoral and popliteal veins while on Eliquis. He was then changed back to Pradaxa. * This current visit, patient was diagnosed with 2 acute DVTs to his right lower extremity despite compliance with Pradaxa. He was started on a heparin drip and recommendation per oncology was to transfer the patient to [facility] as he follows both with vascular surgery and with hematology Dr Demetrius Saunders. He was accepted for transfer at [facility]. Echocardiogram still pending at time of discharge. He was transferred to [facility] in stable condition. ITS Impressions Chest X-Ray 03/23/17 13:53 IMPRESSION: Findings suggest congestive heart failure D/ / Cesar Patino MD / Cesar Patino MD Interpreting Provider: Cesar Patino MD Chest CTA 03/23/17 15:05 IMPRESSION: 1. No evidence of pulmonary embolism or aortic dissection. 2. Centrilobular punctate nodular ground-glass opacity within the posterior aspect of the lingula, new when compared to the previous exam, suggesting bronchiolitis. 3. Minimal patchy bilateral lower lung airspace opacity, likely atelectasis, unchanged. D/ / Martin Fowler MD / Martin Fowler MD Interpreting Provider: Martin Fowler MD Lower extremity venous duplex impressions: Lower extremity abnormal deep exam: Right superficial femoral vein and peroneal vein demonstrate acute thrombosis. Left lower extremity: Normal contralateral exam. Right lower extremity normal superficial exam. - Time Spent with Patient Total time spent providing and/or coordinating discharge services: Greater than 30 minutes (intrahospital transfer; records review, time with patient explaining transfer) - Constitutional Vitals: Temp Pulse Resp BP Pulse Ox 97.4 F L 79 16 125/75 96 03/24/17 12:14 03/24/17 12:14 03/24/17 12:14 03/24/17 12:14 03/24/17 12:14 General appearance: Present: cooperative, mild distress (2/2 pain), A&O X 3, pleasant, obese, answers questions appropriately - Head Head exam: Present: atraumatic, normocephalic - Eye Eye exam: Present: PERRL, conjuntiva pink, sclera anicteric Pupils: Present: PERRL - Neck Neck exam general surgery: Present: supple, trachea midline. Absent: lymphadenopathy - Respiratory Respiratory exam: Present: decreased breath sounds. Absent: accessory muscle use, rales, respiratory distress, rhonchi, wheezes - Cardiovascular Cardiovascular exam: Present: RRR, +S1, +S2. Absent: diastolic murmur, gallop, rubs, systolic murmur - GI/Abdominal GI/Abdominal exam: Present: normal bowel sounds, soft, no peritoneal signs. Absent: distended, tenderness - Extremities Exam Extremities exam: Present: pedal edema, warm, radial pulses palpable and symetrical. Absent: calf tenderness, cyanotic - Expanded Lower Extremities Exam Lower Leg exam: Present: erythema, swelling, tenderness. Absent: normal inspection Ankle exam: Present: erythema, swelling, tenderness. Absent: normal inspection Foot/Toe exam: Present: erythema, swelling, tenderness Neuro vascular tendon exam: Absent: abnormal cap refill, pulse deficit, sensory deficit Gait: Present: not tested/not observed - Neurological Exam Neurological exam: Present: alert, CN II-XII intact, oriented X3, no focal deficits, strengths equal and symetr throughout. Absent: pronater drift, facial droop, speech deficit - Skin Skin exam: Present: diaphoretic, erythema, intact, normal color, warm
[2017-03-25] MEDS: *HR* HYDROmorphone 2 MG/ML SYRINGE IVP PRN ×2 (01:04→08:57)
[2017-03-25] MEDS: Heparin 25,000 UNIT/500 ML D5W 25,000 UNIT/500 ML MLS IVC SCH (01:12)
[2017-03-25] MEDS: *HR* OxyCODONE/APAP 5/325 TABLET PO PRN ×2 (04:36→12:01)
[2017-03-25] MEDS: BuPROPion SR (12 HR) 150 MG TABLET PO SCH (09:40)
[2017-03-25] MEDS: Gabapentin 400 MG CAPSULE PO SCH (09:40)
[2017-03-25] MEDS: Multivit/Ca/Min/Fe/FA 1 TAB TABLET PO SCH (09:41)
[2017-03-25] MEDS: hydroCHLOROthiazide 25 MG TABLET PO SCH (09:48)
[2017-03-25] MEDS: Fluticasone Propionate Nasal 50 MCG/SPRAY BOTTLE NS SCH (09:57)
[2017-03-25 11:22] VITALS: BP 131/68
[2017-03-25] MEDS: Ondansetron 4 MG/2 ML VIAL IVP PRN (12:00)
--- NOTE | 2017-03-25 12:18 | Internal Med Progress Note ---
Date of Encounter: 03/25/17 Time of Encounter: 10:00 - Assessment and plan (1) Factor 5 Leiden mutation, heterozygous Current Visit: Yes Status: Chronic (2) Deep vein thrombosis (DVT) of popliteal vein of right lower extremity Current Visit: No Status: Acute Assessment and plan: Patient has a recurrent DVT. Failed to outpatient anticoagulation treatment. Oncology consult appreciated. On heparin drip for now. Plan to transfer to [facility] for further diagnosis and management. Qualifiers: Chronicity: acute Qualified Code(s): I82.431 - Acute embolism and thrombosis of right popliteal vein - Time Spent With Patient 25 - 35 minutes - Subjective Interval history: Patient was admitted for right leg DVT. He has factor V [place] mutation with history of multiple DVT. Oncology consult saw patient. Plan to transfer to [facility] for further management. I saw and examined the patient today. He still compliant right leg pain and swelling, on heparin drip and now. Denies chest pain or shortness of breath. Vital signs stable. Waiting for [facility] transfer. - Constitutional Vitals: Temp Pulse Resp BP Pulse Ox 97.3 F L 88 18 131/68 93 03/25/17 11:15 03/25/17 11:15 03/25/17 11:15 03/25/17 11:15 03/25/17 11:15 General appearance: Present: cooperative, mild distress (2/2 pain), A&O X 3, pleasant, obese, answers questions appropriately - Head Head exam: Present: atraumatic, normocephalic - Eye Eye exam: Present: PERRL, conjuntiva pink, sclera anicteric Pupils: Present: PERRL - Neck Neck exam general surgery: Present: supple, trachea midline. Absent: lymphadenopathy - Respiratory Respiratory exam: Present: CTAB. Absent: accessory muscle use, rales, rhonchi, wheezes - Cardiovascular Cardiovascular exam: Present: RRR, +S1, +S2. Absent: diastolic murmur, gallop, rubs, systolic murmur - GI/Abdominal GI/Abdominal exam: Present: normal bowel sounds, soft, no peritoneal signs. Absent: distended, tenderness - Extremities Exam Extremities exam: Present: calf tenderness (On right lower leg), warm, radial pulses palpable and symetrical. Absent: cyanotic, pedal edema - Neurological Exam Neurological exam: Present: CN II-XII intact, oriented X3, no focal deficits. Absent: pronater drift, facial droop, speech deficit - Skin Skin exam: Present: dry, intact Internal Medicine: Result - Labs CBC & Chem 7: 03/24/17 01:14 03/24/17 01:14 - ABG Interpretation ABG results: PT/INR, D-dimer PT 13.0 Seconds (9.4-12.1) H 03/23/17 14:52 D-Dimer 1206 ng/mLFEU (0-500) H 03/23/17 14:52 Consult Discharge Plan - Plan Additional Instructions: Sending directly to [facility] for further care Referrals: Clyde Dias DO [Primary Care Provider] -
== END 2017-03-25 13:10 | disposition short-term general hospital (02) | DRG 300 ==
LOC: EMEROO 13:39 → 3BNU 13:39 → SUATTDRO 18:40 → 3BNU 19:03
PROVIDERS: ADMIT Registered Nurse; ATTEND Nurse Practitioner Family